=== PATIENT | female | born 1985 | race American Indian/Alaskan Native ===

== ENCOUNTER 2017-02-20 22:37 | Inpatient (IN) | payer MEDICAID, OTHER ==
[2017-02-20] MEDS ORDERED: SUBLIMAZE IV PRN (23:13)
[2017-02-20] MEDS ORDERED: XYLOCAINE 2% INFILTRATI ONE (23:13)
[2017-02-20] MEDS ORDERED: ePHEDrine SULFATE IV PRN (23:13)
[2017-02-20] MEDS ORDERED: MINERAL OIL PO PRN (23:13)
[2017-02-20] MEDS ORDERED: BRETHINE IVP PRN (23:13)
[2017-02-20] MEDS ORDERED: ZOFRAN IV PRN (23:13)
--- NOTE | 2017-02-20 23:20 | History and Physical Report ---
History of Present Illness Date of examination: 02/20/17 Date of admission: 02/20/17 22:57 Chief complaint: labor contractions @ 40 weeks, SVE 6cms History of present illness: Menstrual History Regularity: regular Menses every: 28 days Duration: 5 LMP: 05/16/2016 LMP reliability: definite LMP character: normal test type: urine test Date: 07/19/2016 BC at conception: none Planned ? 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 Infection History Hx of STD: none Varicella/Chicken Pox Status: Previous Disease Infection History Comments: pt gives hx of shingles @ 24yo Has NOT had vaccine Genetic History Congenital Heart Defect: Mom: no Dad: no Byron Disease: Mom: no Dad: no Thalassemia Mom: no Dad: no Neural Tube Defect Mom: no Dad: no Down's Syndrome Mom: no Dad: no Buddy-Sachs Mom: no Dad: no Sickle Cell Disease/Trait Mom: no Dad: no Hemophilia Mom: no Dad: no Muscular Dystrophy Mom: no Dad: no Cystic Fibrosis Mom: no Dad: no Cooper Chorea Mom: no Dad: no Mental Retardation Mom: no Dad: no Fragile X Mom: no Dad: no Other Genetic/Chromosomal Disorder Mom: no Dad: no Child w/other defect Mom: no Dad: no Enviromental Exposures Xray Exposure: no Medication, drug, or alcohol use since LMP: no Chemical/Other Exposure: no Exposure to Cat Liter: no Hx of Parvovirus (Fifth Disease): no Occupational Exposure to Children: none FALSECurrent Allergies: No known allergies Past History Past Medical History: no pertinent history Past Surgical History: other (see HPI) - Obstetrical History Expected Date of Delivery: 02/20/17 Actual Gestation: 40 Week(s) 0 Day(s) : 2 Para: 1 Hx # Term Pregnancies: 1 Number of Pregnancies: 0 Spontaneous Abortions: 0 Induced : 0 Number of Living Children: 1 Review of Systems All systems: negative - Physical Exam Breasts: Positive: normal Cardiovascular: Regular rate Lungs: Positive: Clear to auscultation, Normal air movement Abdomen: Positive: normal appearance, soft, normal bowel sounds Genitourinary (Female): Positive: normal external genitalia, normal perenium Vulva: both: normal Vagina: Positive: normal moisture Uterus: Positive: normal size, normal contour Anus/Rectum: Positive: normal perianal skin Extremities: Positive: normal Deep Tendon Reflex Grade: Normal +2 - Obstetrical FHR: auscultation normal Uterine Contraction Monitor Mode: External Uterine Contraction Pattern: Regular Uterine Tone Measurement Phase: Contraction Results All other labs normal. Patient: MARTINA SUE ID: [id number] Note: All result statuses are Final unless otherwise noted. Tests: (1) Profile I ([id number]) HBsAg Screen Negative Negative *1 Rubella Antibodies, IgG 4.19 index Immune >0.99 *2 Non-immune <0.90 Equivocal 0.90 - 0.99 Immune >0.99 ABO Grouping O *3 Rh Factor Positive *4 Please note: Prior records for this patient's ABO / Rh type are not available for additional verification. Antibody Screen Negative Negative *5 RPR Non Reactive Non Reactive *6 WBC 6.3 x10E3/uL 3.4-10.8 *7 RBC 4.38 x10E6/uL 3.77-5.28 *8 Hemoglobin [L] 10.9 g/dL 11.1-15.9 *9 Hematocrit 34.8 % 34.0-46.6 *10 MCV 80 fL 79-97 *11 MCH [L] 24.9 pg 26.6-33.0 *12 MCHC [L] 31.3 g/dL 31.5-35.7 *13 RDW 13.6 % 12.3-15.4 *14 Platelets 196 x10E3/uL 150-379 *15 Neutrophils 51 % *16 Lymphs 41 % *17 Monocytes 7 % *18 Eos 1 % *19 Basos 0 % *20 ! Immature Cells <No Reported Value> *21 Neutrophils (Absolute) 3.2 x10E3/uL 1.4-7.0 *22 Lymphs (Absolute) 2.6 x10E3/uL 0.7-3.1 *23 Monocytes(Absolute) 0.5 x10E3/uL 0.1-0.9 *24 Eos (Absolute) 0.1 x10E3/uL 0.0-0.4 *25 Baso (Absolute) 0.0 x10E3/uL 0.0-0.2 *26 ! Immature Granulocytes 0 % *27 ! Immature Grans (Abs) 0.0 x10E3/uL 0.0-0.1 *28 ! NRBC <No Reported Value> *29 Hematology Comments: <No Reported Value> *30 Tests: (2) Cystic Fibrosis Profile ([id number]) ! CF, Screen Comment: *31 RESULTS: Negative for 32 mutations analyzed INTERPRETATION: This individual is negative for the mutations analyzed. This negative result may need further interpretation depending on the clinical indication. This result reduces but does not eliminate the risk to be a CF carrier. COMMENTS: The detection rate varies with ethnicity and is listed below. The presence of an undetected mutation in the CF gene cannot be ruled out. In the absence of family history, the remaining risk that a person with a negative result could have at least one CF mutation is listed in the table. If there is a family history of CF, these risk figures do not apply. As detailed information regarding this individual's family history would permit a more accurate assessment of this individual's risk to be a carrier of cystic fibrosis, please contact [employer] at for a revised report. Mutation Detection Detection rates are based on mutation Rates among Ethnic frequencies in patients affected with Groups cystic fibrosis. Among individuals with an atypical or mild presentation (e.g. congenital absence of the vas deferens, pancreatitis) detection rates may vary from those provided here: Carrier risk reduction when no family history Detection Ethnicity Rate Ashkenazi 04/05 to 97% Yarsani 04/04 to 90% (non-) -Polish to 69% 46 to 1/168 73% to 55% This interpretation is based on the clinical and family relationship information provided and the current understanding of the molecular genetics of this condition. MUTATIONS ANALYZED: G85E V520F S3103M 2183AA to G R117H G542X T7743F 2184delA R334W S549N 394delTT 2789+5G to A R347H S549R 621+1G to T 3120+1G to A R347P G551D 711+1G to T 3659delC A455E R553X 1078delT 3849+10kbC to T BwllwZ339 R560T 1717-1G to A 3876delA [id number] O3618E 1898+1G to A 3905insT METHODS/LIMITATIONS: DNA is isolated from the sample and tested for the 32 CF mutations on the [place] Array Platform ([email or web address]). Regions of the CFTR gene are amplified enzymatically and subjected to a solution-phase multiplex allele-specific primer extension with subsequent hybridization to a bead array and fluorescence detection. Polymorphisms F508C, I506V and I507V are included in this panel to rule out false positive [id number] homozygotes. Reflex testing of 5T is included in the panel for R117H interpretation. False positive or negative results may occur for reasons that include genetic variants, blood transfusions, bone marrow transplantation, erroneous representation of family relationships or contamination of a sample with maternal cells. REFERENCES: 1. Updates on Carrier Screening for Cystic Fibrosis. (2011) Am J Ob Gynecol 117(4):3764-1904 2. Adam, et al. (2004) [place] Med 6:387-91 3. Margaret et al. (2002) [place] Med 4:379-391 4. Preconception and carrier screening for cystic fibrosis: (2001)ACOG.ACMG publication Results Released By: Wally Umana M.D., Clinical Pharmacy Specialist Report Released By: Wally Umana M.D., Clinical Pharmacy Specialist ! Comment: SPRCS *32 The assay provides information intended to be used for carrier screening in adults of reproductive age, as an aid in screening, and as a confirmatory test for another medically established diagnosis in newborns and children. The test is not indicated for use in diagnostic testing, pre-implantation screening, or for any stand-alone diagnostic purposes without confirmation by another medically established diagnostic product or procedure. Tests: (3) HB Solu + Rflx Fra ([id number]) Hemoglobin (Hgb) Solubility Negative Negative *33 Tests: (4) Panel 390977 ([id number]) HIV Screen 4th Generation wRfx Non Reactive Non Reactive *34 Tests: (5) HCV Ab w/Rflx to Verification ([id number]) ! HCV Ab <0.1 s/co ratio 0.0-0.9 *35 Tests: (1) Chlamydia/GC Amplification (421387) Order Note: Clinical Information: SRC:VR SRC:UR Chlamydia trachomatis, MIGUELINA Negative Negative *1 Neisseria gonorrhoeae, MIGUELINA Negative Negative *2 Tests: (2) Strep Gp B MIGUELINA (719472) ! Strep Gp B MIGUELINA Negative Negative *3 Assessment and Plan admitted for labor @ 40 weeks, + HSV -no out breaks noted. GBS NEG. Admission orders in EMR. - Patient Problems (1) Active labor at term Current Visit: Yes Status: Acute (2) 40 weeks gestation of Current Visit: Yes Status: Acute
[2017-02-20 23:39] LABS: Hematocrit 34.1 % (30.3-42.9); Mean Corpuscular HGB Conc 32 % (30-34); Mean Corpuscular Volume 78 fl (79-97); Platelet Count 179 K/mm3 (140-440); Red Blood Count 4.37 M/mm3 (3.65-5.03); Red Cell Distribution Width 14.3 % (13.2-15.2); White Blood Count 12.9 K/mm3 (4.5-11.0)
[2017-02-20 23:43] LABS: Mean Corpuscular Hemoglobin 25 pg (28-32)
[2017-02-20] MEDS ORDERED: LACTATED RINGERS 1,000 ML IV SCH (23:45)
[2017-02-20] MEDS ORDERED: PITOCin/NS 20 UNIT/1000ML DRIP 20 UNITS/1,000 ML BAG IV SCH (23:45)
--- NOTE | 2017-02-21 00:04 | Procedure Note ---
OB Delivery Note - Delivery Date of Delivery: 02/20/17 ( Male) Labor Operator: IAIN BONILLA Estimated blood loss: 300cc - Vaginal Delivery presentation: vertex Delivery position: OA Intrapartum events: none Delivery induction: none Delivery monitor: external FHT Route of delivery: Delivery placenta: spontaneous Delivery cord: 3 umbilical vessels Episiotomy: none Delivery laceration: 2nd degree Delivery repair: vicryl Anesthesia: local Delivery comments: Male infant del over intact perineum, placed skin to skin on mother's abdomen. 3 vessel cord clamped and cut, cord blood collected. Placenta del intact and complete. 2nd degree lac repaired in the usual fashion with vicryl CT under local. ELB 300, infant's weight 5#12oz, apgars 8/9. mother and remain LDR stable. - A at 1 minute: 8 at 5 minutes: 9 Gender: Male (5#12oz)
[2017-02-21] MEDS ORDERED: LANSINOH TP PRN (02:32)
[2017-02-21] MEDS ORDERED: PITOCin/NS 20 UNIT/1000ML DRIP 20 UNITS/1,000 ML BAG IV SCH (02:32)
[2017-02-21] MEDS ORDERED: MILK OF MAGNESIA PO PRN (02:32)
[2017-02-21] MEDS ORDERED: DULCOLAX PR PRN (02:32)
[2017-02-21] MEDS ORDERED: DERMOPLAST TP PRN (02:32)
[2017-02-21] MEDS ORDERED: TYLENOL PO PRN (02:32)
[2017-02-21] MEDS ORDERED: PHENERGAN PO PRN (02:32)
[2017-02-21] MEDS ORDERED: SODIUM CHLORIDE FLUSH SYRINGE 10 ML IV PRN (02:32)
[2017-02-21] MEDS ORDERED: BENADRYL PO PRN (02:32)
[2017-02-21] MEDS ORDERED: TUCKS PAD TP PRN (02:32)
[2017-02-21] MEDS: PRENATAL VITAMIN PO SCH (09:15)
[2017-02-21] MEDS: COLACE PO SCH ×2 (09:15→22:00)
[2017-02-21] MEDS: NORCO 5/325 PO PRN ×2 (09:16→16:25)
[2017-02-21] MEDS: MOTRIN PO SCH ×2 (09:16→16:25)
[2017-02-21 11:11] LABS: Hematocrit 26.9 % (30.3-42.9); Hemoglobin 8.6 gm/dl (10.1-14.3)
--- NOTE | 2017-02-21 18:39 | Progress Note ---
Assessment and Plan - Patient Problems (1) (normal spontaneous vaginal delivery) Current Visit: Yes Status: Acute Plan to address problem: Patient doing well . Patient did have a drop in her hemoglobin and hematocrit but no orthostatic symptoms we'll repeat H&H to insure stability. Patient is breast-feeding without complaints continue routine care Subjective - Subjective Date of service: 02/21/17 Patient reports: appetite normal, voiding normally, pain well controlled, ambulating normally [place]: doing well Objective - Vital Signs Latest vital signs: Vital Signs Temp Pulse Resp BP Pulse Ox 02/21/17 08:30 98.5 F 98 H 18 121/78 02/21/17 03:00 98.8 F 74 18 106/68 02/21/17 01:00 98.3 F 80 20 100/61 02/21/17 00:19 98.8 F 02/21/17 00:12 103 H 100 02/20/17 23:23 69 97 Intake and Output 02/21/17 02/21/17 02/21/17 06:59 14:59 22:59 Intake Total 360 360 Output Total 1100 Balance -740 360 Intake: Oral 360 Intake, Free Water 360 Output: Urine 1100 Void 1100 Other: Total, Intake Amount 360 Total, Output Amount 800 Weight 140 lb Estimated Blood Loss 300 - Exam Breasts: Present: deferred Cardiovascular: Present: Regular rate Lungs: Present: Normal air movement Abdomen: Present: normal appearance Uterus: Present: normal, firm, fundal height below umbilicus Extremities: Present: edema - Labs Labs: Abnormal lab results 02/20/17 02/21/17 Range/Units 23:00 10:47 WBC 12.9 H (4.5-11.0) K/mm3 Hgb 8.6 L (10.1-14.3) gm/dl Hct 26.9 L D (30.3-42.9) % MCV 78 L (79-97) fl MCH 25 L (28-32) pg
[2017-02-21 18:54] LABS: Hematocrit 27.5 % (30.3-42.9); Hemoglobin 8.6 gm/dl (10.1-14.3)
[2017-02-22] MEDS: NORCO 5/325 PO PRN ×2 (01:29→11:45)
[2017-02-22] MEDS: MOTRIN PO SCH ×3 (01:30→11:45)
[2017-02-22] MEDS ORDERED: BOOSTRIX IM ONE (06:00)
[2017-02-22 08:47] VITALS: BP 105/57
--- NOTE | 2017-02-22 08:57 | Discharge Summary ---
Providers - Providers Date of Admission: 02/20/17 22:57 Date of discharge: 02/22/17 (desires d/c home) Attending physician: RACHELLE BOYD 02/21/17 02:32 Consult to [facility] [place] [employer] [CONS] Routine Reason For Exam: assistance with , SNS Primary care physician: RACHELLE BOYD Hospitalization Reason for admission: active labor Delivery: Episiotomy: none Laceration: 2nd degree Incision: normal, dry, intact Other procedures: none complications: none Discharge diagnosis: IUP at term delivered [place] baby: male Hospital course: uncomplicated vaginal delivery. patient doing well, no complaints. VSSAF, H&H stable. Disposition: DC-30 STILL A PATIENT - Discharge Diagnoses (1) (normal spontaneous vaginal delivery) Status: Acute Plan - Discharge Medications Prescriptions: Ferrous Sulfate [Feosol 325 MG tab] 325 mg PO BID #90 tablet Ibuprofen [Motrin 800 MG tab] 800 mg PO Q8HR PRN #30 tablet PRN Reason: Pain Lidocain2.5%/Prilocai2.5% [Emla] 5 gm TP ONCE PRN #1 tube PRN Reason: Pain - Provider Discharge Summary Activity: routine, no sex for 6 weeks, no heavy lifting 4 weeks, no strenuous exercise Diet: routine Instructions: routine Additional instructions: [] Smoking cessation referral if applicable(refer to patient education folder for contact #) [] Refer to [facility] Booklet Call your doctor immediately for: * Fever > 100.5 * Heavy vaginal bleeding ( >1 pad per hour) * Severe persistent headache * Shortness of breath * Reddened, hot, painful area to leg or breast * Drainage or odor from incision. * Keep incision clean and dry at all times and follow doctor's instructions regarding bathing/showering - Follow up plan Follow up: RACHELLE BOYD MD [Primary Care Provider] - 7 Days (Congratulations! Please call [phone] to schedule your son's circumcision in 1 week and your visit in 6 weeks. Bring EMLA cream to your son's visit and await further instructions. Call for any questions or concerns.)
[2017-02-22] MEDS: PRENATAL VITAMIN PO SCH (11:44)
[2017-02-22] MEDS: COLACE PO SCH (11:45)
== END 2017-02-22 13:30 | disposition home or self-care (01) | DRG 775 ==
LOC: TRG 22:37 → LD 22:57 → OB 02-21 01:53
PROVIDERS: ADMIT Obstetrics & Gynecology; ATTEND Obstetrics & Gynecology
PROC: 10E0XZZ Delivery of Products of Conception, External Approach (ICD-10-PCS; principal; 2017-02-20)
PROC: 0KQM0ZZ Repair Perineum Muscle, Open Approach (ICD-10-PCS; 2017-02-20)
DX: O70.1 Second degree perineal laceration during delivery (principal); Z37.0 Single live birth; Z3A.40 40 weeks gestation of pregnancy; Z71.3 Dietary counseling and surveillance
CPT/HCPCS: 36415; 85014; 85018; 85027; 86592; 86850; 86900; 86901; 99211; G0463; J2590; J7120

== ENCOUNTER 2017-09-10 18:44 | Emergency (ER) | payer MEDICAID, OTHER ==
[2017-09-10 19:48] LABS: Basophils % (Auto) 0.3 % (0.0-1.8); Eosinophils % (Auto) 0.6 % (0.0-4.3); Hematocrit 35.7 % (30.3-42.9); Hemoglobin 11.5 gm/dl (10.1-14.3); Lymphocytes # (Auto) 3.5 K/mm3 (1.2-5.4); Lymphocytes % (Auto) 43.6 % (13.4-35.0); Mean Corpuscular HGB Conc 32 % (30-34); Mean Corpuscular Volume 78 fl (79-97); Monocytes # (Auto) 0.5 K/mm3 (0.0-0.8); Monocytes % (Auto) 5.6 % (0.0-7.3); Platelet Count 195 K/mm3 (140-440); Red Blood Count 4.59 M/mm3 (3.65-5.03); Red Cell Distribution Width 13.9 % (13.2-15.2)
[2017-09-10 19:49] LABS: Mean Corpuscular Hemoglobin 25 pg (28-32)
[2017-09-10 21:43] LABS: Bilirubin,Urine NEG (Negative); Color,Urine Straw (Yellow); Protein,Urine <15 mg/dL mg/dL (Negative); Urobilinogen,Urine < 2.0 mg/dL (<2.0); WBC,Urine < 1.0 /HPF (0.0-6.0)
[2017-09-10 21:47] LABS: Blood,Urine LG (Negative)
--- NOTE | 2017-09-10 22:25 | Emergency Department Report ---
HPI - General Chief Complaint: Vaginal Bleeding Time Seen by Provider: 09/10/17 22:08 - HPI HPI: 32-year-old female presents to the emergency department with a complaint of vaginal bleeding and pelvic cramping that started early this afternoon, and the patient is . With this , the patient is with 2 live children. Her last mental cycle was July 01. She says that the bleeding and cramping feels like the first day of a menstrual cycle. She has gone through 2 pads thus far. Her STATION EXAMINER is Dr. Mello. She otherwise denies any past medical history. She has not taken anything for her symptoms prior to presentation. She denies any fever, dysuria, vaginal discharge. ED Past Medical Hx - Past Medical History Previous Medical History?: Yes Hx Hypertension: No Hx Congestive Heart Failure: No Hx Diabetes: No Hx Deep Vein Thrombosis: No Hx Renal Disease: No Hx Sickle Cell Disease: No Hx Seizures: No Hx Asthma: No Hx COPD: No Hx HIV: No Additional medical history: 2 vaginal deliveries. - Surgical History Past Surgical History?: No - Social History Smoking Status: Never Smoker Substance Use Type: Alcohol - Medications Home Medications: Home Medications Medication Instructions Recorded Confirmed Last Taken Type Ibuprofen [Motrin 800 MG tab] 800 mg PO Q8HR PRN #30 tablet 02/21/17 Unknown Rx Lidocain2.5%/Prilocai2.5% [Emla] 5 gm TP ONCE PRN #1 tube 02/21/17 Unknown Rx Ferrous Sulfate [Feosol 325 MG tab] 325 mg PO BID #90 tablet 02/22/17 Unknown Rx ED Review of Systems ROS: Stated complaint: VAGINAL BLEEDING Other details as noted in HPI Comment: All other systems reviewed and negative Constitutional: denies: chills, fever Eyes: denies: eye pain, eye discharge, vision change ENT: denies: ear pain, throat pain Respiratory: denies: cough, shortness of breath, wheezing Cardiovascular: denies: chest pain, palpitations Gastrointestinal: abdominal pain. denies: vomiting Genitourinary: other (vaginal bleeding). denies: urgency, dysuria, discharge Musculoskeletal: denies: back pain, joint swelling, arthralgia Skin: denies: rash, lesions Neurological: denies: headache, weakness, paresthesias Physical Exam - Physical Exam Vital Signs: Vital Signs 09/10/17 18:49 Temperature 98.5 F Pulse Rate 86 Respiratory 18 Rate Blood Pressure 121/73 O2 Sat by Pulse 100 Oximetry Physical Exam: GENERAL: The patient is well-developed well-nourished. HENT: Normocephalic. Atraumatic. Patient has moist mucous membranes. EYES: Extraocular motions are intact. NECK: Supple. Trachea is midline. CHEST/LUNGS: Clear to auscultation. There is no respiratory distress noted. HEART/CARDIOVASCULAR: Regular. There is no tachycardia. There is no murmur. ABDOMEN: Abdomen is soft, nontender. Patient has normal bowel sounds. There is no abdominal distention. SKIN: Skin is warm and dry. NEURO: The patient is awake, alert, and oriented. The patient is cooperative. The patient has no focal neurologic deficits. The patient has normal speech. MUSCULOSKELETAL: There is no tenderness or deformity. There is no limitation range of motion. There is no evidence of acute injury. ED Course Vital Signs 09/10/17 18:49 Temperature 98.5 F Pulse Rate 86 Respiratory 18 Rate Blood Pressure 121/73 O2 Sat by Pulse 100 Oximetry - Consultations Consultation #1: 09/11/17 01:[address] Sarah regarding the patient's presentation, vaginal bleeding while , and ultrasound concerning for intrauterine demise. Dr. Sarah does not feel that there is any acute and/or immediate intervention necessary through the emergency department at this time. She is going to make the patient appointment to see her in the office on at 10:30 AM at the [facility]. ED Medical Decision Making - Lab Data Result diagrams: 09/10/17 19:25 - Radiology Data Radiology results: report reviewed PROCEDURE: US OB TRANSVAGINAL TECHNIQUE: Real-time transvaginal sonography of the uterus, placenta, amniotic fluid, adnexa, and fetus was performed with image documentation. Measurements were obtained to determine age/size. M- mode Doppler was used to document heartbeat. CPT 43633 HISTORY: +hcg bleeding COMPARISON: No prior studies are available for comparison. FINDINGS: There is a single intrauterine gestation sac measuring 15.7 millimeters in diameter corresponding to 6 weeks and 3 days of gestational age. During the scan gestational sac moved from fundal location to the body.. CRL: 2.5mm, which corresponds to a gestational age of: 5weeks, 6 days. Yolk Sac: Normal. Embryonic Cardiac Activity: Cardiac activity could not be identified. Right Ovary: Measures 2.8 x 1.7 x 2.7 centimeters demonstrating normal echotexture and Doppler signal. Left Ovary: Measures 2.5 x 1.3 x 3.0 centimeters with normal echotexture and Doppler signal. IMPRESSION: A single intrauterine gestational sac is identified which moved from the fundus to the body during the scanning. There is no cardiac activity consistent with intrauterine gestation failure. Gestational sac corresponds to 6 weeks and 3 days of gestational age and CRL corresponds to 5 weeks and 6 days of gestational age. Transcribed By: [facility] [place]ictated By: LISA GARCIA Electronically Authenticated By: LISA GARCIA Signed Date/Time: 09/10/17 5704 - Medical Decision Making Patient presented with vaginal bleeding and pelvic cramping after finding out she was from a home test. The beta-hCG was about 10,000. The stat ultrasound came back showing concern for intrauterine demise as the gestational sac moved from the fundus to the body of the uterus during scanning and there is no visible cardiac activity. I spoke with the OB/ [facility] service who has made an appointment for follow-up on at 10:30 AM, in 2 days. All of the lab and imaging results were discussed with the patient in great detail and she understands the diagnosis of threatened miscarriage with probable intrauterine demise. The patient was given instructions to return to the emergency department with any increased vaginal bleeding or hemorrhage, worsening of her symptoms or any acute distress. Otherwise she will follow-up with STATION EXAMINER in 2 days. - Differential Diagnosis , demise, threatened miscarriage, spontaneous , fibr Critical Care Time: No Critical care attestation.: If time is entered above; I have spent that time in minutes in the direct care of this critically ill patient, excluding procedure time. ED Disposition Clinical Impression: Threatened miscarriage, demise Disposition: DC-01 TO HOME OR SELFCARE Is pt being admited?: No Condition: Stable Instructions: Intrauterine Demise (ED) Additional Instructions: Please follow up with the STATION EXAMINER at the appointment that has been set up for you on at 10:30 AM in the [place] office with Dr. Sarah. Return to the emergency department with any worsening of your symptoms including heavy vaginal bleeding, especially if it requires more than 1 pad per hour, or with any acute distress. Referrals: RACHELLE SARAH MD [Staff Physician] - 09/12/17 10:30 am
[2017-09-10 22:41] VITALS: BP 123/68
--- NOTE | 2017-09-10 23:31 | Ultrasound Report ---
FINAL REPORT PROCEDURE: US OB TRANSVAGINAL TECHNIQUE: Real-time transvaginal sonography of the uterus, placenta, amniotic fluid, adnexa, and fetus was performed with image documentation. Measurements were obtained to determine age/size. M-mode Doppler was used to document heartbeat. CPT 70917 HISTORY: +hcg bleeding COMPARISON: No prior studies are available for comparison. FINDINGS: There is a single intrauterine gestation sac measuring 15.7 millimeters in diameter corresponding to 6 weeks and 3 days of gestational age. During the scan gestational sac moved from fundal location to the body.. CRL: 2.5mm, which corresponds to a gestational age of: 5weeks, 6 days. Yolk Sac: Normal. Embryonic Cardiac Activity: Cardiac activity could not be identified. Right Ovary: Measures 2.8 x 1.7 x 2.7 centimeters demonstrating normal echotexture and Doppler signal. Left Ovary: Measures 2.5 x 1.3 x 3.0 centimeters with normal echotexture and Doppler signal. IMPRESSION: A single intrauterine gestational sac is identified which moved from the fundus to the body during the scanning. There is no cardiac activity consistent with intrauterine gestation failure. Gestational sac corresponds to 6 weeks and 3 days of gestational age and CRL corresponds to 5 weeks and 6 days of gestational age.
--- NOTE | 2017-09-10 23:38 | Ultrasound Report ---
FINAL REPORT PROCEDURE: US OB < = 14 WEEKS FETUS TECHNIQUE: Real-time transabdominal sonography of the uterus, placenta, amniotic fluid, adnexa, and fetus was performed with image documentation. Measurements were obtained to determine age/size. M-mode Doppler was used to document heartbeat. CPT 78585 HISTORY: +hcg bleeding COMPARISON: No prior studies are available for comparison. FINDINGS: There is a single intrauterine gestation sac measuring 15.7 millimeters in diameter corresponding to 6 weeks and 3 days of gestational age. During the scan gestational sac moved from fundal location to the body.. CRL: 2.5mm, which corresponds to a gestational age of: 5weeks, 6 days. Yolk Sac: Normal. Embryonic Cardiac Activity: Cardiac activity could not be identified. Right Ovary: Measures 2.8 x 1.7 x 2.7 centimeters demonstrating normal echotexture and Doppler signal. Left Ovary: Measures 2.5 x 1.3 x 3.0 centimeters with normal echotexture and Doppler signal. IMPRESSION: A single intrauterine gestational sac is identified which moved from the fundus to the body during the scanning. There is no cardiac activity consistent with intrauterine gestation failure. Gestational sac corresponds to 6 weeks and 3 days of gestational age and CRL corresponds to 5 weeks and 6 days of gestational age.
== END 2017-09-10 23:56 | disposition home or self-care (01) ==
LOC: ED 18:44
DX: O20.0 Threatened abortion (principal); Z3A.01 Less than 8 weeks gestation of pregnancy
CPT/HCPCS: 36415; 76801; 76817; 81001; 84702; 85025; 86850; 86900; 86901